=== PATIENT | male | born 1965 | race Asian ===

== ENCOUNTER 2016-04-21 01:11 | Outpatient (CLI) | payer BC ==
[2016-04-21] MEDS ORDERED: MELOXICAM15 MG PO (01:36)
[2016-04-21] MEDS ORDERED: ROBAXIN500 MG PO (01:37)
== END 2016-04-21 01:29 | disposition short-term general hospital (02) ==
LOC: AMB 01:11
DX: M54.5 Low back pain (principal)
CPT/HCPCS: A0425; A0427

== ENCOUNTER 2016-04-21 01:30 | Emergency (ER) | payer BC ==
[~2016-04-21] VITALS: Ht 188 cm; Wt 102.5 kg
[2016-04-21] MEDS ORDERED: MELOXICAM15 MG PO (01:36)
[2016-04-21] MEDS ORDERED: ROBAXIN500 MG PO (01:37)
[2016-04-21 02:08] VITALS: BP 161/103; TEMP 99.4
== END 2016-04-21 02:10 | disposition home or self-care (01) ==
LOC: ED 01:30
DX: M54.5 Low back pain (principal); X50.1XXA Overexertion from prolonged static or awkward postures, initial encounter
CPT/HCPCS: 96374; 96375; 99283; J1885; J3360